=== PATIENT | male | born 1970 | race African-American/Black ===

== ENCOUNTER 2016-08-08 18:14 | Observation (INO) ==
--- NOTE | 2016-08-08 18:28 | Emergency Department Note ---
Disposition Clinical Impression: Asthma with exacerbation Qualifiers: Asthma severity: moderate persistent Qualified Code(s): J45.41 - Moderate persistent asthma with (acute) exacerbation Disposition: Admitted As Inpatient Condition: Fair Referrals: NO,PCP [Non-Partnered Physician] - Forms: ED Satisfaction Letter General Adult HPI - General Chief complaint: ED Shortness of Breath/Dyspnea Stated complaint: [place] Hx Asthma Time Seen by Provider: 08/08/16 18:28 Source: patient Nursing Notes Reviewed: Yes Vital Signs Reviewed: Yes - History of Present Illness HPI Narrative: Chief complaint is asthma flareup. History: 46-year-old gentleman, comes in today with an asthma attack. He says asthmas pre-stable. Uses inhalers at home. No smoking and no prednisone at this time. 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 He is to breathing treatment at home without good relief. He is conversationally dyspneic about 2 words. Does have wheezing throughout. Not using accessory muscles to breathe. Mild cough, no chest pain. Nurse's notes reviewed, past medical history reviewed, surgery history reviewed med list reviewed. Not a smoker. Pain Scale: 0 - Related Data Home Medications Medication Instructions Recorded Confirmed Advair 100-50 Diskus 02/25/15 02/25/15 Ventolin Hfa 02/25/15 02/25/15 Previous Rx's Medication Instructions Recorded Albuterol Sulfate [Ventolin Hfa] 2 puff IH Q4H PRN #1 hfa.aer.ad 04/08/15 Fluticasone/Salmeterol [Advair 1 puff IH BID #1 blst.w.dev 04/08/15 250-50 Diskus] Ciprofloxacin [Cipro] 500 mg PO BID 7 Days 07/14/15 Phenazopyridine HCl [Pyridium] 200 mg PO TID 2 Days 07/14/15 Albuterol Sulfate [Albuterol 4 puff IH Q6HR #1 hfa.aer.ad 04/29/16 Inhaler] PredniSONE 40 mg PO NOW #20 tablet 04/29/16 Allergies Allergy/AdvReac Type Severity Reaction Status Date / Time No Known Allergies Allergy Verified 04/29/16 19:28 Review of Systems: Positive for cough, wheeze, dyspnea. All systems ED: reviewed and negative except as stated. Past Medical History - Past Medical History Medical history: Reports: asthma Surgical history: Reports: no surgical history Psychiatric history: Reports: no psych history - Social History Smoking Status: Never smoker Smokeless Tobacco Status: No Alcohol use: Reports: occasionally Drug use: Reports: none Physical Exam Temperature is 97.9, pulse is 118, respirations are 28 and slightly labored, BP is 181/94, sats 95% on room air, is 81 kg. Conversationally dyspneic to 1-2 words. HEENT is normocephalic, PERRL, EOMI, midline airway, no drooling, no stridor, supple neck, no lymph nodes Cardiovascular is tachycardic but regular without rubs or JVD Lungs have decreased aeration throughout with wheezing. He is moving air not using accessory muscles to breathe Abdomen soft nonsurgical good bowel sounds Dermatologic skin is warm and dry no rash or petechia or jaundice Extremities are present 4 he is Brisk cap refill, he is up and ambulatory Neurologic: No focal deficits alert to person place and time GCS is 15 - General General appearance: alert, in no apparent distress Course Vital Signs Temperature 97.9 F 08/08/16 18:16 Pulse Rate 118 08/08/16 18:16 Respiratory Rate 28 08/08/16 18:16 Blood Pressure 181/94 08/08/16 18:16 O2 Sat by Pulse Oximetry 95 08/08/16 18:16 Temperature 97.9 F 08/08/16 18:16 Pulse Rate 111 08/08/16 19:08 Respiratory Rate 22 08/08/16 19:08 Blood Pressure 146/92 08/08/16 19:08 O2 Sat by Pulse Oximetry 98 08/08/16 19:37 Oxygen Delivery Oxygen Delivery Room Air Medical Decision Making - [facility] Narrative Medical decision making narrative: I examined this patient and my medical decision-making was reviewed: Ordered breathing treatments chest x-ray and steroids and then reassess. He is in agreement with this plan Chest X-Ray 08/08/16 18:29 IMPRESSION: No acute abnormality. D/ / Hola Miller MD / Hola Miller MD Interpreting Provider: Hola Miller MD 1908 hrs.: Patient feels better, he is moving more air base does a lot of wheezing. His sats 97% I have a feeling if he gets up and ambulates his insert wheezing again. He has had his steroids but that obviously has not kicked in yet. I will offer him admission versus going home he said he does not really want to be admitted but he agrees to stick around for a while so we can assess him again and he is drinking fluids now and then work and a recheck him in about 20 or 30 minutes and see if we may need progress and then we will finalize disposition. He is in agreement with this plan. 2004 hrs.: Hospitalist as accepted patient for admission. Patient's agreement with plan. Hospital [facility] for basic labs for him. That is ordered.
[2016-08-08] MEDS ORDERED: Ipratropium/Albuterol Neb 3 ML IH ONE (18:29)
[2016-08-08] MEDS ORDERED: predniSONE 20 MG TABLET PO ONE (18:29)
[2016-08-08 20:15] LABS: Basophils % 0.3 %; Eosinophils # 0.3 K/mcL (0.0-0.6); Eosinophils % 3.7 %; Hematocrit 36.7 % (37.5-50.1); Hemoglobin 12.5 g/dL (12.9-16.9); Immature Granulocytes % 0.3 % (0-4); Lymphocytes # 0.5 K/mcL (0.6-4.6); Lymphocytes % 6.1 %; Mean Corpuscular HGB Conc 34.1 g/dL (31.6-35.5); Mean Corpuscular Hemoglobin 31.2 pg (28.0-33.3); Mean Corpuscular Volume 91.5 fL (83.0-100.0); Monocytes # 0.4 K/mcL (0.0-1.3); Monocytes % 4.4 %; Neutrophils # 7.4 K/mcL (1.6-8.9); Platelet Count 186 K/mcL (140-400); Red Blood Count 4.01 M/mcL (4.19-5.50); Red Cell Distribution Width 13.6 % (11.5-14.5); Segmented Neutrophils % 85.2 %
[2016-08-08 20:29] LABS: Potassium 3.3 mEq/L (3.5-4.5)
--- NOTE | 2016-08-08 21:31 | Internal Med History&Physical ---
Date of Encounter: 08/08/16 Time of Encounter: 21:00 Assessment and Plan (1) Asthma with exacerbation Current visit: Yes Status: Acute Patient shortness of breath and wheezing due to asthma exacerbation. Patient has had prior asthma exacerbations, one of which resulting in his intubation at [facility] over 15 years ago. His exacerbation was not relieved by home breathing treatments. He has expressed some improvement in his breathing since having breathing treatment and steroids in the emergency room. We will have scheduled and as needed DuoNeb treatments every 4 hours Continue home Symbicort Solu-Medrol 60 mg every 6 hours We will have continuous pulse oximetry monitoring Qualifiers: Asthma severity: moderate persistent Qualified Code(s): J45.41 - Moderate persistent asthma with (acute) exacerbation (2) Hypokalemia Current visit: Yes Status: Acute Patient has hypokalemia with serum potassium 3.3. This is possibly due to patient dehydration, but albuterol can also be contributory with the inward flux of potassium into the cells. Will recheck potassium with morning chemistry 20 mEq potassium PO once (3) Renal insufficiency Current visit: Yes Status: Acute Patient has elevated serum creatinine with slight elevation of creatine kinase seen. 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 No prior labs are available to help ascertain whether this is acute or chronic. Likely this is acute in nature due to dehydration, but will further evaluate. Obtain renal ultrasound Check chemistry and morning labs 1 L of saline bolus with 100 ml/hr normal saline (4) DVT prophylaxis Current visit: Yes Status: Acute Encourage patient ambulation Internal Medicine - H&P: HPI Chief complaint: Asthma Attack Admitted From: Home Plans for Post Hospital Care: Home History of present illness: Mr. Love is a 46 year old male with prior medical history of asthma presented to the ED at [facility] this afternoon after having an asthma attack that was not improving with his home breathing treatments. 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 This was a about 3pm. He reports that he went home and gave himself an albuterol breathing treatment, but that it did not work to alleviate his asthma attack. With his home breathing treatment being ineffective, he decided to come into the emergency room. In the emergency department he was given albuterol breathing treatment and 60 mg of prednisone, this improved his ability to breathe significantly but he was still having some wheezing and breathing issues so he agreed to be admitted for further treatment. When seen he is sitting comfortably on the side of his bed and reports some continued wheezing. He states that the episode he had earlier felt like his previous asthma attacks, where he could inhale but not exhale. He denies having a cough until given breathing treatment in the emergency room. He does report some continued chest tightness, wheezing, shortness of breath. He reports being overall healthy, no recent illnesses, no sick contacts, and no travel. He denies nausea/vomiting, denies fever/chills, nausea/vomiting, or abdominal pain. Past Med Surg Social Fam HX - Past Medical History Medical history: asthma Psychiatric history: no psych history - Past Surgical History Surgical History: no surgical history - Social History Smoking Status: Never smoker Smokeless Tobacco Status: No Alcohol use: occasionally Drug use: none - Family History Grandmother Hx Family Endocrine Disorder: Yes (DM) Internal Medicine - H&P: Meds Albuterol Sulfate [Ventolin Hfa] 2 puff IH Q4H PRN 02/25/15 [History] Albuterol Neb [Proventil Neb] 2.5 mg IH TID PRN 08/08/16 [History] Fluticasone/Salmeterol [Advair 250-50 Diskus] 1 each IH BID 08/08/16 [History] Allergies No Known Allergies Allergy (Verified 04/29/16 19:28) - Constitutional Constitutional: no chills, no fatigue, no fever(s), no weakness - EENT Eyes: no change in vision, no loss of vision Nose, mouth and throat: no nasal discharge, no sore throat - Cardiovascular Cardiovascular ROS IM: as per HPI, other (Chest tightness), no chest pain, no diaphoresis, no dyspnea, no lightheadedness, no palpitations, no syncope - Respiratory Respiratory: as per HPI, cough, dyspnea, wheezing, no hemoptysis, no dyspnea on exertion, no pain on inspiration, no chest congestion, no pain with cough - Gastrointestinal Gastrointestinal: no abdominal pain, no diarrhea, no hematemesis, no hematochezia, no melena, no nausea, no vomiting - Musculoskeletal Musculoskeletal ROS IM: no numbness, no tingling - Integumentary Integumentary IM: no rash, no unusual bruising - Neurological Neurological ROS: no confusion, no convulsions, no focal weakness, no numbness, no tingling, no tremor(s) - Constitutional Vitals: Temp Pulse Resp BP Pulse Ox 98.1 F 82 16 167/107 100 08/08/16 21:29 08/08/16 21:29 08/08/16 21:29 08/08/16 21:29 08/08/16 21:29 Exam: General: Cooperative, pleasant, no acute distress, alert and oriented 3, answers questions appropriately Head: Normocephalic, atraumatic Eye: Conjunctiva pink, sclera anicteric, EOMI, PERRL Neck: Supple, trachea midline, oropharynx moist, no erythema or exudates in oropharynx Respiratory: No accessory muscle usage, good air movement, mild wheezing auscultated diffusely Cardiovascular: Regular rate and rhythm, S1 and S2 present, no murmurs/rubs/ gallops/clicks appreciated GI/abdominal: Nondistended, nontender, soft, normal bowel sounds, no peritoneal signs Extremities: No calf tenderness, no pedal edema appreciated, warm, lower extremity pulses palpable and symmetrical Neurological: Alert and oriented 3, no facial droop, no focal deficits Skin: Dry, intact, normal color Internal Med - H&P Results - Labs CBC & Chem 7: 08/08/16 20:07 08/08/16 20:07 - Impressions Impressions Chest X-Ray 08/08/16 18:29 IMPRESSION: No acute abnormality. D/ / Hola Miller MD / Hola Miller MD Interpreting Provider: Hola Miller MD
[2016-08-08] MEDS ORDERED: Acetaminophen 325 MG TABLET PO PRN (21:32)
[2016-08-08] MEDS ORDERED: Ondansetron 4 MG/2 ML VIAL IVP PRN (21:32)
[2016-08-08] MEDS ORDERED: Naloxone 0.4 MG/ML INJ IVP PRN (21:32)
[2016-08-08] MEDS ORDERED: Ipratropium/Albuterol Neb 3 ML IH PRN (21:34)
--- NOTE | 2016-08-08 22:07 | Event Note ---
Date of Encounter: 08/08/16 Time of Encounter: 22:04 Patient seen and examined with manager medical writing. 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 Was doing fine this morning without any respiratory complaints. She started calling wheezy and short of breath. He was found to be in mild respiratory distress with two word dyspnea despite nebulizer treatment in the ER so is being admitted to the hospital. We will start IV steroids and Q4 hours nebulizer treatment. He still has inspiratory and expiratory wheezing during my interview. He has renal failure no baseline. Denies any prior history of kidney disease. Maybe related to dehydration. Also check CPK level. Patient will receive a liter of fluid bolus followed by normal; miles an hour. Checked renal ultrasound. Check CPK level.
[2016-08-08] MEDS ORDERED: Ipratropium/Albuterol Neb 3 ML IH SCH ×2 (22:15→23:00)
[2016-08-08] MEDS ORDERED: 0.9 % Sodium Chloride 1,000 ML IVC ONE (22:18)
[2016-08-08] MEDS ORDERED: 0.9 % Sodium Chloride 1,000 ML IVC SCH (22:30)
[2016-08-08] MEDS: Ipratropium/Albuterol Neb 3 ML IH SCH (23:27)
[2016-08-09] MEDS: methylPREDNISolone 125 MG/2 ML VIAL IVP SCH ×2 (01:16→06:06)
[2016-08-09] MEDS: Ipratropium/Albuterol Neb 3 ML IH SCH ×3 (04:13→11:22)
[2016-08-09 05:27] LABS: Hematocrit 35.9 % (37.5-50.1); Hemoglobin 12.1 g/dL (12.9-16.9); Immature Granulocytes % 0.2 % (0-4); Lymphocytes # 0.2 K/mcL (0.6-4.6); Lymphocytes % 3.9 %; Mean Corpuscular HGB Conc 33.7 g/dL (31.6-35.5); Mean Corpuscular Volume 92.1 fL (83.0-100.0); Mean Platelet Volume 9.6 fL (9.4-12.4); Monocytes % 0.7 %; Neutrophils # 5.4 K/mcL (1.6-8.9); Platelet Count 195 K/mcL (140-400); Red Cell Distribution Width 13.7 % (11.5-14.5); Segmented Neutrophils % 95.2 %
[2016-08-09 05:41] LABS: Calcium 8.9 mg/dL (8.6-10.8); Magnesium 1.2 mg/dL (1.6-2.6); Potassium 4.3 mEq/L (3.5-4.5)
[2016-08-09] MEDS ORDERED: predniSONE 20 MG TABLET PO SCH (09:00)
[2016-08-09] MEDS ORDERED: Budesonide/Formoterol 80/4.5 MDI IH SCH (10:00)
--- NOTE | 2016-08-09 11:13 | Discharge Summary ---
Date of Encounter: 08/08/16 Time of Encounter: 09:00 - Discharge Diagnosis (1) Asthma with exacerbation Priority: Primary Status: Acute Comments: Pt states that he was helping to knock down a wall yesterday, when the dust was stirred up, he began having wheezing, coughing, and difficulty breathing. He states that he went home and tried to do breathing treatments, which did not help. His chest xray in the ED was negative for acute cp disease. He is not sob this a.m., denies wheezing or cough. He is maintaining room air sats in the high 90s without 02. He speaks easily in full sentences without distress. States that he is supposed to be using Advair, but cannot afford it. dietary services manager gave him coupons and resources for assistance with Symbicort and Advair. His lungs are clear. He denies need for any other inhalers or albuterol for his nebulizer. Pt states that he needs to leave today to go to work. Qualifiers: Asthma severity: moderate persistent Qualified Code(s): J45.41 - Moderate persistent asthma with (acute) exacerbation (2) LAINEY (acute kidney injury) Priority: Secondary Status: Acute Comments: Creatinine 1.74 on admission, 1.53 today with hydration. Pt is asymptomatic, denies any urinary symptoms, no flank pain or CVA tenderness. Pt states that he needs to go home and he cannot afford to miss work. Pt states that he will continue to hydrate and follow up with primary care physician. (3) Hydronephrosis determined by ultrasound Priority: Secondary Status: Acute Comments: Ultrasound was obtained for abnormal renal function studies.Mild bilateral hydronephrosis. Pt states that he will follow up with primary care physician for further evaluation and testing. He is asymptomatic. (4) Hypokalemia Priority: Secondary Status: Acute Comments: Resolved. K+ 4.3. (5) DVT prophylaxis Priority: Secondary Status: Acute Comments: Pt is ambulatory. - Discharge Medications Prescriptions: Albuterol Sulfate [Ventolin Hfa] 2 puff IH Q4H PRN #1 hfa.aer.ad PRN Reason: Shortness Of Breath Fluticasone/Salmeterol [Advair 250-50 Diskus] 1 each IH BID #1 blst.w.dev Home Medications: Albuterol Neb [Proventil Neb] 2.5 mg IH TID PRN 08/08/16 [History] Albuterol Sulfate [Ventolin Hfa] 2 puff IH Q4H PRN #1 hfa.aer.ad 08/09/16 [Rx] Fluticasone/Salmeterol [Advair 250-50 Diskus] 1 each IH BID #1 blst.w.dev [Rx] Allergies/Adverse Reactions: Allergies No Known Allergies Allergy (Verified 04/29/16 19:28) Procedures/tests Complete & Pending: Procedures Performed prior 72 hours Category Date Time Status retroperitoneal ultrasound - limited [US Exams 08/08/16 22:20 Completed retroperitoneal limited] [US] Routine Date of admission: 08/08/16 20:18 Primary care physician: Hugh Arreaga, Consults: 08/08/16 21:32 Consult to Nurse Navigator [CONS] Routine Comment: 08/09/16 09:32 Consult to Ergonomics Consultant [CONS] Routine Reason for SW Consult: Can't afford medication Discharging clinician: Floridalma Hoskins Anticipated date of discharge: 08/09/16 - Patient Status Disposition: Home, Self-Care Condition: Good Overall status at discharge: patient is back to baseline - Discharge Instructions Follow Up With: Hugh Arreaga DO [Primary Care Provider] - 08/16/16 9:30 am Additional Instructions: Please follow up with your primary care doctor for refills on your inhalers. I have given you prescriptions for both Advair and Albuterol rescue inhaler, please get them filled. Please see your family doctor for evaluation of your renal status. Please wear a mask at work if you are going to be working around dust. Return to the ED for any other problems, concerns, worsening condition, or for any other concerning symptoms. - Diet and Activity Activity: increase activity as tolerated Diet: advance to your usual diet Hospital course: Mr. Love is a 46 year old male who presents to the emergency room from home. 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 He left work, went home, and tried to go to breathing treatments on his own. He did not get better and went to the emergency department. He was admitted to [facility] and treated for asthma exacerbation, hypokalemia has resolved, and acute kidney injury. He had a retroperitoneal ultrasound that showed mild bilateral hydronephrosis. He denies any symptoms and states that he will follow up with his primary care physician on an outpatient basis. He declines further CT evaluation of kidneys. Pts lungs are clear and he speaks easily. He has been up in his room walking around and does not require supplemental oxygen. Chest xray was negative for acute pulmonary disease. Pt is stable for discharge. - Time Spent with Patient Total time spent providing and/or coordinating discharge services: Less than 30 minutes - Constitutional Vitals: Temp Pulse Resp BP Pulse Ox 97.7 F 79 18 154/82 97 08/09/16 07:05 08/09/16 07:05 08/09/16 07:33 08/09/16 07:05 08/09/16 07:33 General appearance: Present: A&O X 3, no acute distress, answers questions appropriately - Head Head exam: Present: normal inspection - Eye Eye exam: Present: normal appearance, conjuntiva pink - ENT ENT exam: Present: mucous membranes moist, normal exam - Neck Neck exam general surgery: Present: normal inspection. Absent: lymphadenopathy , tenderness - Respiratory Respiratory exam: Present: decreased breath sounds, CTAB. Absent: respiratory distress, rhonchi, stridor, wheezes, tachypnea - Cardiovascular Cardiovascular exam: Present: RRR, +S1, +S2. Absent: diastolic murmur, systolic murmur - GI/Abdominal GI/Abdominal exam: Present: normal bowel sounds, soft. Absent: hepatomegaly, tenderness - Extremities Exam Extremities exam: Present: normal capillary refill, normal inspection, warm. Absent: pedal edema, tenderness - Neurological Exam Neurological exam: Present: alert, oriented X3, no focal deficits, strengths equal and symetr throughout
[2016-08-09 11:58] VITALS: BP 176/88
== END 2016-08-09 12:45 | disposition home or self-care (01) ==
LOC: EMEROO 18:14 → 3BNU 18:14
PROVIDERS: ADMIT Registered Nurse; ATTEND Registered Nurse

== ENCOUNTER 2016-08-21 23:17 | Inpatient (IN) ==
[2016-08-21] MEDS ORDERED: methylPREDNISolone 125 MG/2 ML VIAL IVP ONE (23:22)
[2016-08-21] MEDS ORDERED: 0.9 % Sodium Chloride 1,000 ML IVC ONE (23:22)
[2016-08-21] MEDS ORDERED: Ipratropium/Albuterol Neb 3 ML IH SCH (23:30)
[2016-08-21] MEDS ORDERED: Ipratropium/Albuterol Neb 3 ML IH ONE ×2 (23:59)
[2016-08-22] MEDS ORDERED: Dexamethasone 4 MG/ML VIAL PO ONE
--- NOTE | 2016-08-22 00:20 | Emergency Department Note ---
Disposition Clinical Impression: Asthma with exacerbation Disposition: Home, Self-Care Condition: Good Instructions: Asthma (ED), Bronchospasm (ED), Wheezing (ED) Prescriptions: Azithromycin [Azithromycin 6-Tab Pack] 250 mg PO PER PKG DI #6 tab Ipratropium/Albuterol Neb [Duoneb] 3 ml IH Q4-6H PRN #30 vial.neb PRN Reason: Wheezing PredniSONE 60 mg PO DAILY 5 Days Forms: ED Satisfaction Letter Time of Disposition: 00:23 Asthma HPI - General Chief Complaint: ED Asthma Stated Complaint: Asthma Time Seen by Provider: 08/21/16 23:22 Source: patient Mode of arrival: private vehicle Limitations: no limitations Nursing Notes Reviewed: Yes Vital Signs Reviewed: Yes - History of Present Illness HPI Narrative: 46-year-old male presents to the emergency department with complaint of acute eczema exacerbation. Patient states a history of asthma for most of his life. Patient states that he does not want any full workup, no blood work, no chest x- ray, but is requesting a breathing treatment and steroids. He denies any additional complaints. He denies any chest pain. He denies any fever, chills, nausea or vomiting. He denies any dizziness or lightheadedness. He denies any exposures. Pt Subjective Complaint: "asthma attack", shortness of breath, wheezing Onset (ago): hour(s) Severity: moderate, severe, similar to prior Context: ran out of meds Associated symptoms: Reports: cough. Denies: fever, chest pain, leg edema, syncope - Related Data Current Asthma Therapy: none Home Medications Medication Instructions Recorded Confirmed Albuterol Neb [Proventil Neb] 2.5 mg IH TID PRN 08/08/16 08/08/16 Previous Rx's Medication Instructions Recorded Albuterol Sulfate [Ventolin Hfa] 2 puff IH Q4H PRN #1 hfa.aer.ad 08/09/16 Fluticasone/Salmeterol [Advair 1 each IH BID #1 blst.w.dev 08/09/16 250-50 Diskus] Azithromycin [Azithromycin 6-Tab 250 mg PO PER PKG DI #6 tab 08/22/16 Pack] Ipratropium/Albuterol Neb [Duoneb] 3 ml IH Q4-6H PRN #30 vial.neb 08/22/16 PredniSONE 60 mg PO DAILY 5 Days 08/22/16 Allergies Allergy/AdvReac Type Severity Reaction Status Date / Time No Known Allergies Allergy Verified 04/29/16 19:28 All systems ED: reviewed and negative except as stated. Constitutional: Denies: fever, chills Cardiovascular: Denies: chest pain, palpitations, syncope Respiratory: Reports: cough, dyspnea, wheezes Gastrointestinal: Denies: abdominal pain, nausea, vomiting Musculoskeletal: Denies: back pain, neck pain Integumentary: Denies: rash, abrasion, lesions Neurological: Denies: headache Psychiatric: Denies: anxiety, depression, suicidal thoughts, homicidal thoughts Asthma PMH - Past Medical History Medical history: Reports: asthma Male Surgical History: Reports: orthopedic, other Psychiatric history: Reports: no psych history - Social History Smoking Status: Never smoker Alcohol use: Reports: occasionally Drug use: Reports: none Physical Exam - General Limitations: no limitations General appearance: alert, in no apparent distress - Head Head exam: atraumatic, normocephalic, normal inspection - Eye Eye exam: Present: normal appearance, PERRL - Neck Neck exam: Present: normal inspection, full ROM, trachea midline - Chest Chest inspection: Present: normal inspection, symmetric chest wall rise - Respiratory Respiratory exam: Present: normal lung sounds bilaterally, wheezes (Inspiratory and expiratory). Absent: respiratory distress, accessory muscle use - Cardiovascular Cardiovascular exam: Present: regular rate, normal rhythm, normal heart sounds - Extremities Exam Extremities exam: Present: normal inspection, full ROM. Absent: tenderness, pedal edema - Expanded Lower Extremity Exam Gait: observed and normal - Back Exam Back exam: Present: normal inspection, full ROM. Absent: tenderness - Neurological Exam Neurological exam: Present: alert, oriented X3 - Psychiatric Psychiatric exam: Present: normal affect, normal mood - Skin Skin exam: Present: warm, dry, intact, normal color Course Vital Signs Temperature 98.3 F 08/21/16 23:19 Pulse Rate 102 08/21/16 23:19 Respiratory Rate 20 08/21/16 23:19 Blood Pressure 195/121 08/21/16 23:19 O2 Sat by Pulse Oximetry 95 08/21/16 23:19 Temperature 98.3 F 08/21/16 23:19 Pulse Rate 102 08/21/16 23:19 Respiratory Rate 22 08/21/16 23:49 Blood Pressure 195/121 08/21/16 23:19 O2 Sat by Pulse Oximetry 93 08/21/16 23:49 Oxygen Delivery Oxygen Delivery Room Air
[2016-08-22] MEDS ORDERED: Ipratropium/Albuterol Neb 3 ML IH ONE (01:01)
[2016-08-22] MEDS ORDERED: methylPREDNISolone 125 MG/2 ML VIAL IVP ONE (01:01)
--- NOTE | 2016-08-22 01:06 | Emergency Department Note ---
Disposition Clinical Impression: Asthma with exacerbation, Acute asthmatic bronchitis Disposition: Admitted As Inpatient Condition: Fair Instructions: Asthma (ED), Bronchospasm (ED), Wheezing (ED) Prescriptions: Azithromycin [Azithromycin 6-Tab Pack] 250 mg PO PER PKG DI #6 tab Ipratropium/Albuterol Neb [Duoneb] 3 ml IH Q4-6H PRN #30 vial.neb PRN Reason: Wheezing PredniSONE 60 mg PO DAILY 5 Days Referrals: Hugh Arreaga DO [Primary Care Provider] - Forms: ED Satisfaction Letter Time of Disposition: 01:05 Asthma HPI - General Chief Complaint: ED Asthma Stated Complaint: Asthma Time Seen by Provider: 08/21/16 23:22 Source: patient Mode of arrival: private vehicle Limitations: no limitations - History of Present Illness Severity: moderate, severe, similar to prior Context: ran out of meds Associated symptoms: Reports: cough. Denies: fever, chest pain, leg edema, syncope - Related Data Current Asthma Therapy: none Home Medications Medication Instructions Recorded Confirmed Albuterol Neb [Proventil Neb] 2.5 mg IH TID PRN 08/08/16 08/08/16 Previous Rx's Medication Instructions Recorded Albuterol Sulfate [Ventolin Hfa] 2 puff IH Q4H PRN #1 hfa.aer.ad 08/09/16 Fluticasone/Salmeterol [Advair 1 each IH BID #1 blst.w.dev 08/09/16 250-50 Diskus] Azithromycin [Azithromycin 6-Tab 250 mg PO PER PKG DI #6 tab 08/22/16 Pack] Ipratropium/Albuterol Neb [Duoneb] 3 ml IH Q4-6H PRN #30 vial.neb 08/22/16 PredniSONE 60 mg PO DAILY 5 Days 08/22/16 Allergies Allergy/AdvReac Type Severity Reaction Status Date / Time No Known Allergies Allergy Verified 04/29/16 19:28 Constitutional: Denies: fever, chills Cardiovascular: Denies: chest pain, palpitations, syncope Respiratory: Reports: cough, dyspnea, wheezes Gastrointestinal: Denies: abdominal pain, nausea, vomiting Musculoskeletal: Denies: back pain, neck pain Integumentary: Denies: rash, abrasion, lesions Neurological: Denies: headache Psychiatric: Denies: anxiety, depression, suicidal thoughts, homicidal thoughts Asthma PMH - Past Medical History Medical history: Reports: asthma Male Surgical History: Reports: orthopedic, other Psychiatric history: Reports: no psych history - Social History Smoking Status: Never smoker Alcohol use: Reports: occasionally Drug use: Reports: none Physical Exam - General Limitations: no limitations General appearance: alert, in no apparent distress Course - Reevaluation(s) Reevaluation #1: Initially the patient was believed to be safe for discharge home, however after ambulation his pulse oxygenation dropped to 88-89% on room with significant inspiratory and expiratory wheezes and feels extremely short of breath. We will discuss admission with hospitalist. Patient does not wear oxygen at home. Time: 01:05 Reevaluation #2: I discussed the case with the hospitalist, he accepts patient for observation. Patient stable at this time. Time: 01:12 Vital Signs Temperature 98.3 F 08/21/16 23:19 Pulse Rate 102 08/21/16 23:19 Respiratory Rate 20 08/21/16 23:19 Blood Pressure 195/121 08/21/16 23:19 O2 Sat by Pulse Oximetry 95 08/21/16 23:19 Temperature 98.3 F 08/21/16 23:19 Pulse Rate 102 08/21/16 23:19 Respiratory Rate 22 08/22/16 01:11 Blood Pressure 195/121 08/21/16 23:19 O2 Sat by Pulse Oximetry 92 08/22/16 01:11 Oxygen Delivery Oxygen Delivery Room Air
[2016-08-22] MEDS ORDERED: Albuterol 2.5 MG/3 ML NEBULIZER IH PRN (03:07)
[2016-08-22] MEDS ORDERED: Naloxone 0.4 MG/ML INJ IVP PRN (03:08)
--- NOTE | 2016-08-22 03:21 | Internal Med History&Physical ---
Date of Encounter: 08/22/16 Time of Encounter: 03:00 Assessment and Plan (1) Asthma with exacerbation Current visit: Yes Status: Acute patient with baseline moderate persistent asthma with a prior history of intubation at the age of 28 years comes in with worsening shortness of breath and other constellation of symptoms concern for severe exacerbation associated with hypoxia on exertion, we are admitting for NIMV, IV steroids, and scheduled nebs Qualifiers: Asthma severity: moderate persistent Qualified Code(s): J45.41 - Moderate persistent asthma with (acute) exacerbation (2) Hyperglycemia Current visit: Yes Status: Acute in July this year he had hyperglycemia, labs from this admission are still pending but he has no prior history of DM, he thus however has a family history of DM, we will check his A1C, FS ACHS, stater on SSI for coverage (3) Renal insufficiency Current visit: Yes Status: Chronic this seems to be improving when compared to his prior labs, we will avoid nephrotoxins and renally dose all medications whilst following [facility] Internal Medicine - H&P: HPI Chief complaint: wheezing and difficulty breathing Admitted From: Emergency Dept Plans for Post Hospital Care: Home History of present illness: Mr. Love is a 46 year old male with a history of moderate persistent asthma comes in with wheezing and difficulty breathing that started about 24 hours prior. 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 Since then he has had difficulty breathing with multiple use of his inhalers. At around 3am on 08/21/16 this got worse and he continued to use his inhalers and nebulizers without improvement so he came to the ER of [facility] for further management. He reports chest tightness, shortness of breath, cough, dyspnea on exertion and easy fatigability. He denies any recent sick contracts or exposure to smokes or exposure to animal dander. 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 mother is alive with no known medical conditions Internal Medicine - H&P: Meds Albuterol Neb [Proventil Neb] 2.5 mg IH TID PRN 08/08/16 [History] Albuterol Sulfate [Ventolin Hfa] 2 puff IH Q4H PRN #1 hfa.aer.ad 08/09/16 [Rx] Fluticasone/Salmeterol [Advair 250-50 Diskus] 1 each IH BID #1 blst.w.dev [Rx] Ipratropium/Albuterol Neb [Duoneb] 3 ml IH Q4-6H PRN #30 vial.neb 08/22/16 [Rx] PredniSONE 60 mg PO DAILY 5 Days 08/22/16 [Rx] Allergies No Known Allergies Allergy (Verified 04/29/16 19:28) All Systems PM: A 10-system review of systems was performed and is negative for pertinent findings except as documented above in the HPI. - Constitutional Constitutional: fatigue, malaise, weakness, no chills - EENT Eyes: no change in vision, no discharge, no pain, no photophobia Ears: no ear discharge, no ear pain, no tinnitus Nose, mouth and throat: dry mouth, no dysphagia, no nasal discharge, no neck pain, no sore throat - Cardiovascular Cardiovascular ROS IM: dyspnea, dyspnea on exertion, palpitations, no chest pain , no diaphoresis, no lightheadedness, no syncope - Respiratory Respiratory: cough, dyspnea, dyspnea on exertion, wheezing, chest congestion - Gastrointestinal Gastrointestinal: no abdominal pain, no diarrhea, no hematemesis, no hematochezia, no melena, no nausea, no vomiting - Genitourinary Genitourinary ROS male: no difficulty urinating, no flank pain, no nocturia - Musculoskeletal Musculoskeletal ROS IM: myalgias, no atrophy, no limited range of motion, no muscle cramps - Integumentary Integumentary IM: no rash, no unusual bruising - Neurological Neurological ROS: no confusion, no convulsions, no focal weakness, no numbness, no tingling, no tremor(s) - Psychiatric Psychiatric: no anhedonia, no auditory hallucinations, no hallucinations - Endocrine Endocrine IM: fatigue, no cold intolerance - Hematologic/Lymphatic Hematologic/Lymphatic: no easy bruising - Allergic/Immunologic Allergic/Immunologic: seasonal rhinorrhea, wheezing, no tongue swelling, no throat swelling - Constitutional Vitals: Temp Pulse Resp BP Pulse Ox 98.2 F 118 12 178/95 97 08/22/16 02:22 08/22/16 02:22 08/22/16 02:22 08/22/16 02:22 08/22/16 02:59 - General General appearance: Adult male, lying in bed in moderate to severe respiratory distress, alert, - Head Head exam: atraumatic, normocephalic, normal inspection - Eye Eye exam: Present: normal appearance, PERRL, EOMI, anicteric sclera, normal conjunctiva - Neck Neck exam: Present: normal inspection, full ROM, trachea midline - Chest Chest inspection: Present: normal inspection, symmetric chest wall rise - Respiratory Respiratory exam: wheezes (Inspiratory and expiratory) in all lung del angel with poor air entry-tight chest. in respiratory distress, with the use of accessory muscles - Cardiovascular Cardiovascular exam: tachycardia, normal rhythm, normal heart sounds - Extremities Exam Extremities exam: Present: normal inspection, full ROM, bilateral ankle scars, worse on the right, Absent: tenderness, pedal edema - Back Exam Back exam: Present: normal inspection, full ROM. Absent: tenderness - Neurological Exam Neurological exam: Present: alert, oriented X3, CN 2-12 grossly intact, non focal motor and sensory exam, - Psychiatric Psychiatric exam: Present: normal affect, normal mood - Skin Skin exam: Present: warm, dry, intact, normal color Internal Med - H&P Results - Labs CBC & Chem 7: 08/22/16 02:59 08/22/16 02:59 Labs: pending - Diagnostic Studies Chest x-ray Status: image reviewed by me
[2016-08-22 03:30] LABS: Basophils % 0.1 %; Eosinophils # 0.1 K/mcL (0.0-0.6); Eosinophils % 0.5 %; Hematocrit 41.1 % (37.5-50.1); Hemoglobin 13.9 g/dL (12.9-16.9); Immature Granulocytes % 0.4 % (0-4); Lymphocytes # 0.4 K/mcL (0.6-4.6); Lymphocytes % 2.5 %; Mean Corpuscular HGB Conc 33.8 g/dL (31.6-35.5); Mean Corpuscular Hemoglobin 31.6 pg (28.0-33.3); Mean Corpuscular Volume 93.4 fL (83.0-100.0); Mean Platelet Volume 9.7 fL (9.4-12.4); Monocytes # 0.1 K/mcL (0.0-1.3); Monocytes % 0.5 %; Neutrophils # 14.4 K/mcL (1.6-8.9); Platelet Count 219 K/mcL (140-400)
[2016-08-22 03:43] LABS: BUN/Creatinine Ratio 14 (6-26); Blood Urea Nitrogen 19 mg/dL (8-26); Calcium 9.6 mg/dL (8.6-10.8); Carbon Dioxide 22 mEq/L (19-29); Chloride 108 mEq/L (98-109); Glucose 125 mg/dL (70-99); Osmolality,Calculated 298 (280-300); Potassium 3.7 mEq/L (3.5-4.5); Sodium 142 mEq/L (136-145); eGFR For African Americans > 60 (> 60); eGFR For Non-African Americans 56 (> 60)
[2016-08-22] MEDS: Ipratropium Neb 0.5 MG NEBULIZER IH SCH ×6 (03:45→23:48)
[2016-08-22] MEDS: Albuterol 2.5 MG/3 ML NEBULIZER IH SCH ×6 (03:45→23:48)
[2016-08-22] MEDS: *HR* Heparin 5,000 UNIT/ML VIAL SQ SCH ×3 (06:13→21:49)
[2016-08-22] MEDS: methylPREDNISolone 125 MG/2 ML VIAL IVP SCH ×3 (07:32→16:29)
--- NOTE | 2016-08-22 13:57 | Event Note ---
Date of Encounter: 08/22/16 Time of Encounter: 10:30 Patient on BiPAP still. Feels better compared to last night. Continue current management with steroids, nebs and BiPAP as needed and wean FiO2 as tolerated.
[2016-08-23] MEDS: methylPREDNISolone 125 MG/2 ML VIAL IVP SCH ×2 (00:03→09:17)
[2016-08-23] MEDS: Ipratropium Neb 0.5 MG NEBULIZER IH SCH ×3 (04:04→11:46)
[2016-08-23] MEDS: Albuterol 2.5 MG/3 ML NEBULIZER IH SCH ×3 (04:05→11:46)
[2016-08-23] MEDS: *HR* Heparin 5,000 UNIT/ML VIAL SQ SCH (05:23)
--- NOTE | 2016-08-23 08:58 | Discharge Summary ---
Date of Encounter: 08/23/16 Time of Encounter: 08:54 - Discharge Diagnosis (1) Asthma with exacerbation Priority: Primary Status: Acute Qualifiers: Asthma severity: moderate persistent Qualified Code(s): J45.41 - Moderate persistent asthma with (acute) exacerbation (2) Renal insufficiency Priority: Secondary Status: Chronic (3) Hyperglycemia Priority: Secondary Status: Acute - Discharge Medications Prescriptions: Beclomethasone Diprop 40mcg [Qvar 40 mcg] 2 puff IH BID #1 inhaler PredniSONE 10 mg PO DAILY 12 Days Home Medications: Albuterol Neb [Proventil Neb] 2.5 mg IH TID PRN 08/08/16 [History] Albuterol Sulfate [Ventolin Hfa] 2 puff IH Q4H PRN #1 hfa.aer.ad 08/09/16 [Rx] Beclomethasone Diprop 40mcg [Qvar 40 mcg] 2 puff IH BID #1 inhaler 08/23/16 [Rx] PredniSONE 10 mg PO DAILY 12 Days 08/23/16 [Rx] Allergies/Adverse Reactions: Allergies No Known Allergies Allergy (Verified 04/29/16 19:28) Date of admission: 08/22/16 04:59 Primary care physician: Hugh Arreaga, Discharging clinician: Oly Andres Anticipated date of discharge: 08/23/16 - Patient Status Disposition: Home, Self-Care Condition: Good Functional capacity at discharge: independent ambulation Overall status at discharge: patient is back to baseline - Discharge Instructions Instructions: Beclomethasone (By breathing), Prednisone (By mouth), Asthma (DC) Follow Up With: Hugh Arreaga DO [Primary Care Provider] - 09/05/16 9:30 am (In one week) Simeon Hodgson MD [Partnered Physician] - 08/24/16 11:30 am Additional Instructions: Follow up with pulmonology for asthma in 1-2 weeks - Diet and Activity Activity: increase activity as tolerated Diet: advance to your usual diet Hospital course: Mr. Love is a 46 year old male with history of asthma was admitted here with acute respiratory failure related to acute asthma exacerbation. He was treated with bronchodilator patient for BiPAP use. He is currently on room air and is feeling much better. He is stable to be discharged to home on a prednisone taper. I will also place him on an inhaled corticosteroid to treat his symptoms better. He will also follow up with pulmonology for further management of his asthma. - Time Spent with Patient Total time spent providing and/or coordinating discharge services: Less than 30 minutes (25 min) - Constitutional Vitals: Temp Pulse Resp BP Pulse Ox 97.8 F 78 16 165/91 98 08/23/16 07:14 08/23/16 07:14 08/23/16 07:39 08/23/16 07:14 08/23/16 07:39 General appearance: Present: cooperative, A&O X 3, pleasant, no acute distress, answers questions appropriately - Respiratory Respiratory exam: Present: CTAB. Absent: accessory muscle use, rales, rhonchi, wheezes - Cardiovascular Cardiovascular exam: Present: RRR, +S1, +S2. Absent: diastolic murmur, gallop, rubs, systolic murmur - GI/Abdominal GI/Abdominal exam: Present: normal bowel sounds, soft, no peritoneal signs. Absent: distended, tenderness - Extremities Exam Extremities exam: Present: warm, radial pulses palpable and symetrical. Absent : calf tenderness, cyanotic, pedal edema - Neurological Exam Neurological exam: Present: CN II-XII intact, oriented X3, no focal deficits. Absent: facial droop, speech deficit - Skin Skin exam: Present: dry, intact - VTE Documentation of Mechanical Device: Venous foot pump, device - Attending Attestation This document has been at least partially created by [employer] voice recognition technology by Dr. Andres. Errors in grammar, wording or other phrases may exist. If errors are found after the documentation is signed, they will be addressed individually in the addendum section of this document when appropriate.
[2016-08-23 11:10] VITALS: BP 159/83
== END 2016-08-23 14:50 | disposition home or self-care (01) | DRG 141 ==
LOC: EMEROO 23:17 → 3NENU 23:17 → SUATTDRO 08-22 04:59
PROVIDERS: ADMIT Internal Medicine; ATTEND Internal Medicine

== ENCOUNTER 2016-10-17 00:27 | Inpatient (IN) ==
[2016-10-17] MEDS ORDERED: Ipratropium/Albuterol Neb 3 ML IH ONE (00:44)
[2016-10-17] MEDS ORDERED: predniSONE 20 MG TABLET PO ONE (00:50)
--- NOTE | 2016-10-17 00:51 | Emergency Department Note ---
Disposition Clinical Impression: Acute respiratory distress Asthma with acute exacerbation Qualifiers: Asthma severity: unspecified severity Qualified Code(s): J45.901 - Unspecified asthma with (acute) exacerbation Disposition: Admitted As Inpatient Condition: Fair Time of Disposition: 02:38 Asthma HPI - General Chief Complaint: ED Asthma Stated Complaint: asthma attack Time Seen by Provider: 10/17/16 00:43 Source: patient Mode of arrival: ambulatory Limitations: no limitations Nursing Notes Reviewed: Yes Vital Signs Reviewed: Yes - History of Present Illness HPI Narrative: 46-year-old male history of uncontrolled asthma resents for difficulty in breathing. Reports difficulty in breathing and increase shortness of breath starting Saturday. He has been using his rescue Albuterol inhaler more frequently up to 10 to 12 times. Reports that he has been prescribed Advair has not been taking it over the past 8 months due to affordability. Denies any recent illness or fever. Usually is asthma attacks occur with change in temperature as well as allergies. Denies any chest pain, abdominal pain, nausea , vomiting. 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 His last exacerbation required admission. He reports intubation 20 years ago. Denies tobacco use. - Related Data Home Medications Medication Instructions Recorded Confirmed Albuterol Neb [Proventil Neb] 2.5 mg IH TID PRN 08/08/16 08/22/16 Previous Rx's Medication Instructions Recorded Albuterol Sulfate [Ventolin Hfa] 2 puff IH Q4H PRN #1 hfa.aer.ad 08/09/16 Beclomethasone Diprop 40mcg [Qvar 2 puff IH BID #1 inhaler 08/23/16 40 mcg] predniSONE [PredniSONE] 10 mg PO DAILY 12 Days 08/23/16 Allergies Allergy/AdvReac Type Severity Reaction Status Date / Time No Known Allergies Allergy Verified 04/29/16 19:28 All systems ED: reviewed and negative except as stated. Constitutional: Denies: fever, chills Cardiovascular: Denies: chest pain Respiratory: Reports: dyspnea, wheezes. Denies: cough Gastrointestinal: Denies: abdominal pain, nausea, vomiting Musculoskeletal: Denies: back pain, neck pain Integumentary: Denies: rash, abrasion, lesions Neurological: Denies: headache, weakness Asthma PMH - Past Medical History Medical history: Reports: asthma Male Surgical History: Reports: orthopedic, other Psychiatric history: Reports: no psych history - Social History Smoking Status: Never smoker Alcohol use: Reports: occasionally Drug use: Reports: none Physical Exam - General Limitations: no limitations General appearance: alert, in no apparent distress - Head Head exam: atraumatic, normocephalic, normal inspection - Eye Eye exam: Present: normal appearance, PERRL, EOMI - ENT ENT exam: normal exam, normal oropharynx, mucous membranes moist - Neck Neck exam: Present: normal inspection, full ROM, trachea midline - Chest Chest inspection: Present: normal inspection, symmetric chest wall rise. Absent : tenderness, rash - Respiratory Respiratory exam: Present: respiratory distress, wheezes, prolonged expiratory phase, other (tight lung sounds) - Cardiovascular Cardiovascular exam: Present: regular rate, normal rhythm, normal heart sounds - Abdominal Exam Abdominal exam: Present: soft, Non-Tender, normal bowel sounds. Absent: tenderness, distention, guarding, rebound, rigidity - Extremities Exam Extremities exam: Present: normal inspection, full ROM, normal capillary refill. Absent: tenderness, pedal edema, calf tenderness - Neurological Exam Neurological exam: Present: alert, oriented X3 - Psychiatric Psychiatric exam: Present: normal affect, normal mood - Skin Skin exam: Present: warm, dry, intact, normal color Course Course Narrative: 46-year-old male presents for asthma attack. History of uncontrolled asthma only takes albuterol inhaler. Patient is 96% on room air. He is afebrile. He appears in mild respiratory distress leaning forward. Lungs are wheezing bilaterally with tight lung sounds. Heart is regular rate and rhythm. He has good capillary refill. Reports his last asthma exacerbation he required admission. Will give him 3 foch-ic-laxh duonebs and steroids and then re- evaluate. Patient is in agreement with plan. - Reevaluation(s) Reevaluation #1: After his breathing treatments he continues to be wheezing diffusely. I am concerned that he may decompensate and will likely admit. Chest x-ray basic labs ordered. He states he is about the same prior to the breathing treatments. Plan to admit for further monitoring and treatment. He is in agreement with this plan. If continues to worsen, will try with BiPAP. Time: 02:01 Reevaluation #2: Patient's tolerating BiPAP well. 96% oxygen saturation. He has improved aeration but diffuse wheezing. Patient has been admitted to the floor and is awaiting transport. Time: 03:32 - Consultations Consultation #1: Spoke with on-call hospitalist london Hector to admit for asthma exacerbation. He has been placed on BiPAP and improved but continues to have diffuse wheezing. No further orders at this time Time: 02:39 Vital Signs Temperature 98.3 F 10/17/16 00:32 Pulse Rate 100 10/17/16 00:32 Respiratory Rate 20 10/17/16 00:32 Blood Pressure 180/123 10/17/16 00:32 O2 Sat by Pulse Oximetry 96 10/17/16 00:32 Temperature 98.3 F 10/17/16 00:32 Pulse Rate 110 10/17/16 02:26 Respiratory Rate 17 10/17/16 02:26 Blood Pressure 154/114 10/17/16 02:26 O2 Sat by Pulse Oximetry 96 10/17/16 02:26 Oxygen Delivery Oxygen Delivery Bipap Asthma - Medical Records Medical records reviewed: Yes I reviewed the patient's medical records. - Lab Data Lab results reviewed: Yes I reviewed the patient's lab results. Result diagrams: 10/17/16 01:29 10/17/16 01:29 Lab Results 10/17/16 10/17/16 Range/Units 01:29 01:29 WBC 10.4 (4.3-11.1) K/mcL RBC 4.11 L (4.19-5.50) M/mcL Hgb 12.6 L (12.9-16.9) g/dL Hct 37.5 (37.5-50.1) % MCV 91.2 (83.0-100.0) fL MCH 30.7 (28.0-33.3) pg MCHC 33.6 (31.6-35.5) g/dL RDW 13.3 (11.5-14.5) % Plt Count 208 (140-400) K/mcL MPV 9.2 L (9.4-12.4) fL Immature Gran % 0.4 (0-4) % Seg Neutrophils % 67.3 % Lymphocytes % 15.8 % Monocytes % 6.6 % Eosinophils % 9.4 % Basophils % 0.5 % Neutrophils # 7.0 (1.6-8.9) K/mcL Lymphocytes # 1.6 (0.6-4.6) K/mcL Monocytes # 0.7 (0.0-1.3) K/mcL Eosinophils # 1.0 H (0.0-0.6) K/mcL Basophils # 0.1 (0.0-0.2) K/mcL Sodium 143 (136-145) mEq/L Potassium 3.4 L (3.5-4.5) mEq/L Chloride 111 H (98-109) mEq/L Carbon Dioxide 23 (19-29) mEq/L BUN 15 (8-26) mg/dL Creatinine 1.18 (0.72-1.25) mg/dL Est GFR ( Amer) > 60 (> 60) Est GFR (Non-Af Amer) > 60 (> 60) BUN/Creatinine Ratio 13 (6-26) Glucose 103 H (70-99) mg/dL Calculated Osmolality 297 (280-300) Calcium 8.9 (8.6-10.8) mg/dL - Radiology Data Radiology results reviewed: Yes I reviewed the patient's radiology results. Chest X-Ray 10/17/16 01:13 IMPRESSION: No evidence of acute cardiopulmonary disease. D/ / Denis Lee MD / Denis Lee MD Interpreting Provider: Denis Lee MD Critical Care Time Critical Care Time: Yes Total Critical Care Time: 30 Attestation: The high probability of a clinically significant, sudden or life threatening deterioration of the [resp] system(s) required my full and direct attention, intervention and personal management. The aggregate critical care time was [30] minutes. This time is in addition to time spent performing reported procedures but includes the following: [X] Data Review and interpretation [X] Patient assessment and monitoring of vital signs [X] Documentation [X] Medication orders and management Attestation Statement - Attestation Attestation: I personally interviewed and examined this patient and my medical decision- making was reviewed with the ED Resident Physician, Dr. Murguia I agree with the documented findings, disposition and treatment plan as described except to the extent set forth below. 46-year-old male who has a history of asthma, poorly controlled with frequent exacerbations due to seasonal changes in weather. Patient presents to the emergency department with gradually worsening shortness of breath in the last 2 days. States in the last 24 hours he has used his inhaler a dozen times with no significant improvement. Patient is supposed to be on Advair but has been off this medication for the last 2 months due to an inability to afford this medication. Patient denies any fevers or chills, no preceding URI symptoms cough or sore throat. Patient is complaining of a tickly breathing, wheezing and tightness in the chest with no cough or posttussive emesis. Time with patient on a monitor and pulse ox, had established IV labs drawn and sent we will obtain a portable chest x-ray patient is receiving albuterol nebs and steroids at this time and will continue to watch closely. Patient is in mild respiratory distress with increased work of breathing tachypnea and room air sats around 94% at this time. Reevaluation patient is states his chest is feeling tight or he feels more restricted despite stable room air sats. Did receive IV steroids so at this time we will proceed with placing him on BiPAP. I did speak with Dr. Villalobos who accepted the patient for admission for an acute exhaustive exacerbation of asthma. Patient is hemodynamically stable at this time and will continue to watch his respiratory status closely
[2016-10-17] MEDS ORDERED: Dexamethasone 4 MG/ML VIAL IVP ONE (01:13)
[2016-10-17 01:36] LABS: Basophils # 0.1 K/mcL (0.0-0.2); Basophils % 0.5 %; Eosinophils % 9.4 %; Hematocrit 37.5 % (37.5-50.1); Hemoglobin 12.6 g/dL (12.9-16.9); Immature Granulocytes % 0.4 % (0-4); Lymphocytes # 1.6 K/mcL (0.6-4.6); Lymphocytes % 15.8 %; Mean Corpuscular HGB Conc 33.6 g/dL (31.6-35.5); Mean Corpuscular Hemoglobin 30.7 pg (28.0-33.3); Mean Corpuscular Volume 91.2 fL (83.0-100.0); Mean Platelet Volume 9.2 fL (9.4-12.4); Monocytes # 0.7 K/mcL (0.0-1.3); Monocytes % 6.6 %; Platelet Count 208 K/mcL (140-400); Red Blood Count 4.11 M/mcL (4.19-5.50); Red Cell Distribution Width 13.3 % (11.5-14.5); Segmented Neutrophils % 67.3 %
[2016-10-17 01:49] LABS: BUN/Creatinine Ratio 13 (6-26); Blood Urea Nitrogen 15 mg/dL (8-26); Calcium 8.9 mg/dL (8.6-10.8); Carbon Dioxide 23 mEq/L (19-29); Chloride 111 mEq/L (98-109); Glucose 103 mg/dL (70-99); Osmolality,Calculated 297 (280-300); Potassium 3.4 mEq/L (3.5-4.5); Sodium 143 mEq/L (136-145); eGFR For African Americans > 60 (> 60); eGFR For Non-African Americans > 60 (> 60)
--- NOTE | 2016-10-17 03:12 | Internal Med History&Physical ---
Date of Encounter: 10/17/16 Time of Encounter: 03:08 Assessment and Plan (1) Asthma Current visit: Yes Status: Acute Patient has acute exacerbation of his asthma. Patient will be admitted to inpatient status. Expected to be in the hospital for at least 2 midnights. High risk due to risk of worsening respiratory failure that may require intubation and mechanical ventilation. Expected discharge disposition is to home. Patient has received 60 mg by mouth prednisone and intravenous Decadron 10 mg. Patient be placed on Solu-Medrol intravenously and breathing treatments around the clock. He will be resumed on Symbicort 160 g. As cost of the medication is a major obstacle to compliance in this patient, at the time of discharge, we will need to address the medication that is likely a generic so that the patient can be compliant with the medication. We will continue BiPAP support due to patient's increased work of breathing. Qualifiers: Asthma severity: moderate persistent Asthma complication type: with acute exacerbation Qualified Code(s): J45.41 - Moderate persistent asthma with ( acute) exacerbation (2) Hypokalemia Current visit: Yes Status: Acute Replace Internal Medicine - H&P: HPI Chief complaint: Shortness of breath and wheezing Admitted From: Emergency Dept Plans for Post Hospital Care: Home History of present illness: Mr. Love is a 46 year old male with a history of asthma since age of 9 years who presented to the emergency department due to worsening shortness of breath, wheezing over the past 2 days. Patient states that he has been on Symbicort 80 g for a long period. However, about 4 years ago, as the Symbicort was not helping him adequately, he was switched to Advair 250/50 which he has been using. He states that he ran out of his Advair 2 months ago as he could not afford it anymore. Hence, he has not been using his Advair over the past 2 months. Prior to that, he was not using Advair regularly twice a day but was using it intermittently due to its cost. At that time, he states that he was using his albuterol inhaler about 2 times per day. Over the past 2 days, the patient started developing worsening shortness of breath that has worsened to the point that he short of breath at rest. He also reports wheezing that has been getting worse. He denies any cough or sputum production. He reports chest tightness but denies any chest pain. He reports palpitations whenever he uses a breathing treatment. He denies feeling lightheaded. He denies any nausea, vomiting, fever or chills, recent upper respiratory infections, abdominal pain, diarrhea or consultation. He reports chronic trouble urination which he attributes to possible overactive bladder. He denies any swelling in his legs. He denies any recent weight changes. He denies any changes in his appetite recently. Past Med Surg Social Fam HX - Past Medical History Medical history: asthma Psychiatric history: no psych history - Past Surgical History Surgical History: orthopedic, other (right ankle surgery for a fracture) - Social History Smoking Status: Never smoker Smokeless Tobacco Status: No Alcohol use: occasionally Drug use: none Occupational status: employed Current living situation: Home - Independent Activity Level: Independent ambulation - Family History Grandmother Living Status: Hx Family Endocrine Disorder: Yes (diabetes) Father Living Status: Still Living Hx Family Endocrine Disorder: Yes (diabetes) Internal Medicine - H&P: Meds Albuterol Neb [Proventil Neb] 2.5 mg IH TID PRN 08/08/16 [History] Albuterol Sulfate [Ventolin Hfa] 2 puff IH Q4H PRN #1 hfa.aer.ad 08/09/16 [Rx] Beclomethasone Diprop 40mcg [Qvar 40 mcg] 2 puff IH BID #1 inhaler 08/23/16 [Rx] predniSONE [PredniSONE] 10 mg PO DAILY 12 Days 08/23/16 [Rx] Allergies No Known Allergies Allergy (Verified 04/29/16 19:28) All Systems PM: A 10-system review of systems was performed and is negative for pertinent findings except as documented above in the HPI. Review of systems: 10 systems have been reviewed and are negative except as mentioned in the history of present illness - Constitutional Vitals: Temp Pulse Resp BP Pulse Ox 98.3 F 110 17 154/114 96 10/17/16 00:32 10/17/16 02:26 10/17/16 02:26 10/17/16 02:26 10/17/16 02:26 Exam: Gen.: Sitting in bed. Moderate distress. Eyes: Pupils equal, round and reactive to light. Extraocular muscles intact. ENT: Moist mucous membranes. No oropharyngeal erythema or discharge. Chest: Bilaterally reduced breath sounds. Diffuse inspiratory and expiratory wheezing present. Using accessory muscles of respiration. CVS: First and second heart sounds present. No murmurs, rubs or gallops. Tachycardia present. Abdomen: Soft, nontender, nondistended. Bowel sounds present. No hepatosplenomegaly. Skin: No decubitus ulcers appreciated. VIDEO SYSTEM REPAIRER: No focal neuro deficits present. Psychiatric: Alert, awake and oriented to time, place and person. Lymphatic system: No lymphadenopathy appreciated Internal Med - H&P Results - Labs CBC & Chem 7: 10/17/16 01:29 10/17/16 01:29 - Diagnostic Studies Chest x-ray Status: image reviewed by me (No acute infiltrates or abnormalities seen.)
[2016-10-17] MEDS ORDERED: Ondansetron 4 MG/2 ML VIAL IVP PRN (03:14)
[2016-10-17] MEDS ORDERED: Acetaminophen 325 MG TABLET PO PRN (03:14)
[2016-10-17] MEDS ORDERED: Naloxone 0.4 MG/ML INJ IVP PRN (03:14)
[2016-10-17 03:47] LABS: Alanine Aminotransferase 15 Units/L (0-55); Albumin 3.6 g/dL (3.5-5.0); Albumin/Globulin Ratio 0.9 (1.1-2.2); Alkaline Phosphatase 46 Units/L (38-126); Aspartate Amino Transferase 19 Units/L (5-34); Bilirubin,Total 0.4 mg/dL (0.2-1.2); Total Protein 7.6 g/dL (6.0-8.3)
[2016-10-17] MEDS: Ipratropium/Albuterol Neb 3 ML IH SCH ×5 (04:07→19:50)
[2016-10-17] MEDS ORDERED: amLODIPine 5 MG TABLET PO SCH (06:10)
[2016-10-17] MEDS: 0.9 % Sodium Chloride 1,000 ML IVC SCH ×2 (06:16→21:12)
[2016-10-17] MEDS: methylPREDNISolone 125 MG/2 ML VIAL IVP SCH ×3 (06:20→16:55)
[2016-10-17] MEDS: Budesonide/Formoterol 160/4.5 MDI IH SCH ×2 (07:56→19:50)
[2016-10-17] MEDS: *HR* Heparin 5,000 UNIT/ML VIAL SQ SCH ×2 (10:15→16:55)
--- NOTE | 2016-10-17 17:30 | Internal Med Progress Note ---
Date of Encounter: 10/17/16 Time of Encounter: 10:30 - Assessment and plan (1) Asthma with exacerbation Current Visit: No Status: Acute Assessment and plan: Patient reports 3 days of worsening chest tightness, difficulty breathing, nonproductive cough. He said he was taking breathing treatments without any relief. He has not been able to afford his medications. putty and patch worker is working on getting prescriptions for him. They are already printed out. I will send him home with his normal home medications which are Advair, albuterol treatments, albuterol inhaler. [employer] drug abuse social worker has them and is working on sending them to the pharmacy for payment. Patient does have inspiratory and expiratory wheezing throughout. He says that he feels tight. He says he is not ready to go home yet and needs another day here with oral steroids and nebulizers. Continue telemetry Continue pulse ox Steroids Nebulizer treatments Monitor labs Qualifiers: Asthma severity: moderate persistent Qualified Code(s): J45.41 - Moderate persistent asthma with (acute) exacerbation (2) DVT prophylaxis Current Visit: Yes Status: Acute Assessment and plan: Heparin subcutaneous daily. (3) Hypokalemia Current Visit: Yes Status: Acute Assessment and plan: Patient was given by mouth potassium last night. We will redraw labs in the morning. Only slightly decreased at 3.4. - Time Spent With Patient less than 15 minutes - Subjective Interval history: Patient was seen and assessed at about 10:30 this morning. Is sitting up in bed watching TV. He reports 3 days history of difficulty breathing that became worse by the day. He was trying albuterol treatments without relief. Patient states that he got scared and came to the emergency department. He states that he is not ready to go home yet today. He needs another day inpatient, he says that he feels tight and is worried about his nonproductive cough. Patient does not appear to be in any distress. He speaks easily in full sentences. There is no accessory muscle use. - Constitutional Vitals: Temp Pulse Resp BP Pulse Ox 98.1 F 96 19 168/97 97 10/17/16 15:26 10/17/16 15:26 10/17/16 16:26 10/17/16 15:26 10/17/16 16:26 General appearance: Present: A&O X 3, pleasant, no acute distress, answers questions appropriately - Head Head exam: Present: normal inspection - Eye Eye exam: Present: normal appearance, conjuntiva pink. Absent: nystagmus - ENT ENT exam: Present: mucous membranes moist, normal exam - Neck Neck exam general surgery: Present: normal inspection. Absent: lymphadenopathy , tenderness - Respiratory Respiratory exam: Present: wheezes. Absent: accessory muscle use, CTAB, rales, respiratory distress, rhonchi, stridor, tachypnea - Cardiovascular Cardiovascular exam: Present: RRR, +S1, +S2. Absent: bradycardia, clicks, diastolic murmur, gallop, systolic murmur, tachycardia - GI/Abdominal GI/Abdominal exam: Present: normal bowel sounds, soft. Absent: hepatomegaly, tenderness - Extremities Exam Extremities exam: Present: normal inspection, warm, radial pulses palpable and symetrical. Absent: pedal edema, tenderness - Neurological Exam Neurological exam: Present: alert, oriented X3, no focal deficits, strengths equal and symetr throughout. Absent: altered, motor sensory deficit Internal Medicine: Result - Labs CBC & Chem 7: 10/17/16 01:29 10/17/16 01:29 Consult Discharge Plan - Plan Referrals: Hugh Arreaga DO [Primary Care Provider] - Prescriptions: Albuterol Sulfate [Albuterol Inhaler] 0 puff IH Q4HR PRN #1 hfa.aer.ad PRN Reason: Wheezing Albuterol Neb [Proventil Neb] 2.5 mg IH Q4H PRN #60 vial.neb PRN Reason: Wheezing Fluticasone/Salmeterol [Advair 250-50 Diskus] 1 each IH BID #1 blst.w.dev
[2016-10-18] MEDS: Ipratropium/Albuterol Neb 3 ML IH SCH ×4 (00:07→11:04)
[2016-10-18] MEDS: methylPREDNISolone 125 MG/2 ML VIAL IVP SCH ×3 (00:18→12:57)
[2016-10-18] MEDS: *HR* Heparin 5,000 UNIT/ML VIAL SQ SCH ×2 (00:18→08:51)
[2016-10-18 05:50] LABS: Basophils % 0.1 %; Hematocrit 37.2 % (37.5-50.1); Hemoglobin 12.5 g/dL (12.9-16.9); Immature Granulocytes % 0.7 % (0-4); Lymphocytes # 1.1 K/mcL (0.6-4.6); Lymphocytes % 5.1 %; Mean Corpuscular HGB Conc 33.6 g/dL (31.6-35.5); Mean Corpuscular Hemoglobin 30.9 pg (28.0-33.3); Mean Corpuscular Volume 91.9 fL (83.0-100.0); Mean Platelet Volume 9.8 fL (9.4-12.4); Monocytes # 0.7 K/mcL (0.0-1.3); Monocytes % 3.2 %; Neutrophils # 19.3 K/mcL (1.6-8.9); Platelet Count 241 K/mcL (140-400); Red Blood Count 4.05 M/mcL (4.19-5.50); Red Cell Distribution Width 13.5 % (11.5-14.5); Segmented Neutrophils % 90.9 %
[2016-10-18 06:08] LABS: BUN/Creatinine Ratio 15 (6-26); Blood Urea Nitrogen 18 mg/dL (8-26); Calcium 9.6 mg/dL (8.6-10.8); Carbon Dioxide 23 mEq/L (19-29); Chloride 109 mEq/L (98-109); Glucose 149 mg/dL (70-99); Osmolality,Calculated 295 (280-300); Potassium 4.2 mEq/L (3.5-4.5); Sodium 140 mEq/L (136-145); eGFR For African Americans > 60 (> 60); eGFR For Non-African Americans > 60 (> 60)
[2016-10-18] MEDS: Budesonide/Formoterol 160/4.5 MDI IH SCH (07:43)
[2016-10-18] MEDS ORDERED: amLODIPine 5 MG TABLET PO SCH (09:00)
[2016-10-18 11:13] VITALS: BP 162/89
--- NOTE | 2016-10-18 14:06 | Discharge Summary ---
Date of Encounter: 10/18/16 Time of Encounter: 09:25 - Discharge Diagnosis (1) Asthma with exacerbation Priority: Primary Status: Acute Comments: Acute exacerbation. Patient feels much better today lungs are not as tight. Although there is still wheezing it is faint posteriorly and is much improved. Room air sats are 97 and 98%. We did get his medication pre-approved and he is ready for discharge. Qualifiers: Asthma severity: moderate persistent Qualified Code(s): J45.41 - Moderate persistent asthma with (acute) exacerbation (2) DVT prophylaxis Priority: Secondary Status: Acute Comments: Heparin subcutaneous daily. (3) Hypokalemia Priority: Secondary Status: Resolved Comments: Resolved. Potassium is 4.2. - Discharge Medications Prescriptions: Albuterol Sulfate [Albuterol Inhaler] 0 puff IH Q4HR PRN #1 hfa.aer.ad PRN Reason: Wheezing Albuterol Neb [Proventil Neb] 2.5 mg IH Q4H PRN #60 vial.neb PRN Reason: Wheezing Fluticasone/Salmeterol [Advair 250-50 Diskus] 1 each IH BID #1 blst.w.dev predniSONE [PredniSONE] 10 mg PO DAILY #31 tablet Home Medications: Albuterol Neb [Proventil Neb] 2.5 mg IH TID PRN 08/08/16 [History] Albuterol Sulfate [Ventolin Hfa] 2 puff IH Q4H PRN #1 hfa.aer.ad 08/09/16 [Rx] Albuterol Neb [Proventil Neb] 2.5 mg IH Q4H PRN #60 vial.neb 10/17/16 [Rx] Albuterol Sulfate [Albuterol Inhaler] 0 puff IH Q4HR PRN #1 hfa.aer.ad 10/17/16 [Rx] Fluticasone/Salmeterol [Advair 250-50 Diskus] 1 each IH BID 10/17/16 [History] Fluticasone/Salmeterol [Advair 250-50 Diskus] 1 each IH BID #1 blst.w.dev [Rx] predniSONE [PredniSONE] 10 mg PO DAILY #31 tablet 10/18/16 [Rx] Allergies/Adverse Reactions: Allergies No Known Allergies Allergy (Verified 10/17/16 09:29) Date of admission: 10/17/16 03:14 Primary care physician: Hugh Arreaga, Consults: 10/17/16 05:04 Consult to Exercise Physiologist [CONS] Routine Reason for SW Consult: PATIENT CANNOT AFFORD PRESCRIBED ADVAIR DISKUS. Discharging clinician: Floridalma Hoskins Anticipated date of discharge: 10/18/16 - Patient Status Disposition: Home, Self-Care Condition: Good Functional capacity at discharge: independent ambulation Overall status at discharge: patient is progressing back to baseline - Discharge Instructions Follow Up With: Hugh Arreaga, [Primary Care Provider] - Additional Instructions: Start your steroids tomorrow. Use your inhalers as directed. Try to rest for the next few days inside in the air conditioning. Follow up with your primary care provider in the next week to 10 days for a reevaluation Return to the ER as needed for any other problems or concerns. - Diet and Activity Activity: increase activity as tolerated Diet: advance to your usual diet Interval History: Patient reports 3 day history of worsening chest tightness, difficulty breathing , nonproductive cough. He said he was taking breathing treatments at home without any relief. He has not been able to afford his inhalers. He did get them preauthorized and he will be on a half them on discharge. He will be sent home with his normal medications which are Advair, albuterol treatments, albuterol inhaler. He is much improved today and states that he feels much better today. He still has faint wheezing in posterior lung [place] angel, although today I can hear air movement and he seems less tight. He says his cough is much improved, as well. He has no leukocytosis and no fever. His vital signs are stable. Room air sats are in the high 90s. He will also be sent home on a steroid taper. Hypokalemia has resolved. Potassium is within normal limits today. Patient is stable and appropriate for discharge. Hospital course: Mr. Love is a 46 year old male - Time Spent with Patient Total time spent providing and/or coordinating discharge services: Less than 30 minutes - Constitutional Vitals: Temp Pulse Resp BP Pulse Ox 97.5 F L 90 18 162/89 100 10/18/16 11:12 10/18/16 11:12 10/18/16 11:12 10/18/16 11:12 10/18/16 11:12 General appearance: Present: A&O X 3, pleasant, no acute distress, answers questions appropriately - Head Head exam: Present: normal inspection - ENT ENT exam: Present: mucous membranes moist, normal exam, normal external ear exam - Neck Neck exam general surgery: Present: normal inspection. Absent: lymphadenopathy , tenderness - Respiratory Respiratory exam: Present: decreased breath sounds, wheezes. Absent: accessory muscle use, respiratory distress, rhonchi - Cardiovascular Cardiovascular exam: Present: RRR, +S1, +S2 - Extremities Exam Extremities exam: Present: full ROM, normal inspection, warm, radial pulses palpable and symetrical. Absent: calf tenderness, pedal edema, tenderness - Neurological Exam Neurological exam: Present: alert, oriented X3, no focal deficits, strengths equal and symetr throughout
== END 2016-10-18 16:13 | disposition home or self-care (01) | DRG 141 ==
LOC: 3BNU 00:27 → EMEROO 00:27 → 3BNU 04:01
PROVIDERS: ADMIT Internal Medicine Sleep Medicine; ATTEND Registered Nurse